=== PATIENT | female | born 1945 | race Caucasian/White ===

== ENCOUNTER 2022-01-27 10:40 | Inpatient (IN) ==
[2022-01-27] MEDS ORDERED: Acetaminophen IV 1,000 MG/100 ML BAG IVPB ONE (11:00)
[2022-01-27] MEDS ORDERED: Acetaminophen IV 500 MG/50 ML BAG IVPB ONE (11:22)
[2022-01-27] MEDS ORDERED: cloNIDine HCL 0.1 MG TABLET PO ONE (11:22)
[2022-01-27] MEDS ORDERED: *HR* FentaNYL (PF) 100 MCG/2 ML VIAL IVP PRN (11:23)
[2022-01-27] MEDS ORDERED: Albuterol 2.5 MG/3 ML NEBULIZER IH PRN (11:23)
[2022-01-27] MEDS ORDERED: Ondansetron 4 MG/2 ML VIAL IVP PRN ×2 (11:23→18:42)
[2022-01-27] MEDS ORDERED: CeFAZolin Syr 2,000MG/20 ML 2,000 MG/20 ML SYRINGE IVPB ONE (11:30)
[2022-01-27] MEDS ORDERED: Ringers Solution, Lactated 1,000 ML IVC SCH (11:30)
[2022-01-27] MEDS ORDERED: *HR* Propofol 200 MG/20 ML VIAL IVP ONE (11:49)
[2022-01-27] MEDS ORDERED: *HR* Midazolam HCl 2 MG/2 ML VIAL ONE (11:49)
[2022-01-27] MEDS ORDERED: *HR* FentaNYL (PF) 100 MCG/2 ML VIAL ONE (11:49)
[2022-01-27] MEDS ORDERED: Heparin 1,000 UNITS/500 mL 1,000 ML ONE (11:52)
[2022-01-27] MEDS ORDERED: Bupivacaine-MPF 0.25% 10 ML VIAL ONE (11:52)
[2022-01-27] MEDS ORDERED: Lidocaine HCL 4 ML Topical Solution (Laryng-O-Jet Kit Sterile Pak) TP ONE (11:53)
[2022-01-27] MEDS ORDERED: *HR* Rocuronium Bromide 50 MG/5 ML VIAL ONE ×2 (11:53→14:41)
[2022-01-27] MEDS ORDERED: Lidocaine -MPF 2% 5 ML VIAL ONE (11:53)
[2022-01-27] MEDS ORDERED: Vancomycin 1,000 MG, Sodium Chloride IRRigation 1,000 ML IR ONE (12:10)
[2022-01-27] MEDS ORDERED: *HR* HYDROMORPHONE 2 MG/ML VIAL ONE (13:45)
[2022-01-27] MEDS ORDERED: Sugammadex Sodium 200 MG/2 ML VIAL IV ONE (15:31)
[2022-01-27] MEDS ORDERED: Vancomycin 1,000 MG VIAL ONE (16:11)
[2022-01-27] MEDS ORDERED: Ondansetron 4 MG/2 ML VIAL ONE (17:06)
[2022-01-27] MEDS ORDERED: Naloxone 0.4 MG/ML INJ IVP PRN (18:42)
[2022-01-27] MEDS: *HR* Labetalol 20 MG/4 ML SYRINGE IVP PRN ×3 (18:54→23:59)
[2022-01-27] MEDS: ceFAZolin 1,000 MG in 0.9 % Sodium Chloride 10 ML IVP SCH (20:30)
[2022-01-28] MEDS ORDERED: CeFAZolin 2 GM/120 ML BAG IVPB SCH
[2022-01-28] MEDS: *HR* Labetalol 20 MG/4 ML SYRINGE IVP PRN ×2 (03:20→17:08)
[2022-01-28] MEDS: ceFAZolin 1,000 MG in 0.9 % Sodium Chloride 10 ML IVP SCH ×2 (04:27→16:57)
[2022-01-28 04:51] LABS: Basophils % 0.5 %; Eosinophils # 0.1 K/mcL (0.0-0.6); Eosinophils % 1.1 %; Hematocrit 30.4 % (35.3-44.9); Hemoglobin 9.5 g/dL (11.5-15.4); Immature Granulocytes % 0.3 % (0-4); Lymphocytes # 0.9 K/mcL (0.6-4.6); Lymphocytes % 11.7 %; Mean Corpuscular HGB Conc 31.3 g/dL (31.6-35.5); Mean Corpuscular Hemoglobin 27.6 pg (28.0-33.3); Mean Corpuscular Volume 88.4 fL (83.0-100.0); Mean Platelet Volume 11.2 fL (9.4-12.4); Monocytes # 0.6 K/mcL (0.0-1.3); Monocytes % 8.1 %; Neutrophils # 5.9 K/mcL (1.6-8.9); Platelet Count 210 K/mcL (140-400); Red Blood Count 3.44 M/mcL (3.82-4.97); Red Cell Distribution Width 14.3 % (11.5-14.5); Segmented Neutrophils % 78.3 %; White Blood Count 7.5 K/mcL (4.3-11.1)
[2022-01-28 05:11] LABS: Calcium 8.5 mg/dL (8.6-10.3); Potassium 3.9 mEq/L (3.5-5.1)
[2022-01-28] MEDS ORDERED: Aspirin Enteric Coated 81 MG Tablet PO SCH (09:00)
[2022-01-28] MEDS ORDERED: *HR* Heparin 5,000 UNIT/ML VIAL IVP ONE (16:41)
[2022-01-28] MEDS ORDERED: Morphine Sulfate 2 MG/ML SYRINGE IVP PRN ×2 (17:00→21:29)
[2022-01-28] MEDS ORDERED: *HR* Propofol 200 MG/20 ML VIAL IVP ONE (17:03)
[2022-01-28] MEDS ORDERED: Lidocaine -MPF 2% 5 ML VIAL ONE (17:04)
[2022-01-28] MEDS ORDERED: Heparin 1,000 UNITS/500 mL 500 ML ONE (17:11)
[2022-01-28] MEDS ORDERED: *HR* FentaNYL (PF) 100 MCG/2 ML VIAL ONE ×2 (17:49→18:54)
[2022-01-28] MEDS ORDERED: *HR* Succinylcholine 200 MG/10 ML VIAL IVP ONE (18:20)
[2022-01-28] MEDS ORDERED: *HR* Rocuronium Bromide 50 MG/5 ML VIAL ONE (18:20)
[2022-01-28] MEDS ORDERED: EPHEDrine sulfate 50 MG/10 ML VIAL IVP ONE (18:32)
[2022-01-28] MEDS ORDERED: Naloxone 0.4 MG/ML INJ IVP PRN ×3 (19:20→21:29)
[2022-01-28] MEDS ORDERED: Ipratropium/Albuterol Neb 3 ML IH ONE ×2 (19:20→21:29)
[2022-01-28] MEDS ORDERED: Nitroglycerin 0.4 MG TAB.SUBL SL PRN ×2 (19:20→21:29)
[2022-01-28] MEDS ORDERED: Ondansetron 4 MG/2 ML VIAL IVP PRN ×3 (19:20→21:29)
[2022-01-28] MEDS ORDERED: *HR* HYDROmorphone PF 0.5 MG/0.5 ML SYRINGE IVP PRN ×2 (19:20→21:29)
[2022-01-28] MEDS ORDERED: *HR* Heparin 5,000 UNIT/ML VIAL ONE (19:23)
[2022-01-28] MEDS ORDERED: *HR* Heparin 5,000 UNIT/ML VIAL IVP PRN ×4 (19:25→21:29)
[2022-01-28] MEDS ORDERED: Heparin 25,000UNIT/250ML 1/2NS 25,000 UNIT/250 ML IV.SOLN IVC SCH ×2 (19:30→21:29)
[2022-01-28] MEDS ORDERED: Sugammadex Sodium 200 MG/2 ML VIAL IV ONE (20:11)
[2022-01-28] MEDS ORDERED: *HR* HYDROcodone/Acet 5/325 mg TABLET PO PRN (21:29)
[2022-01-28] MEDS ORDERED: *HR* Labetalol 20 MG/4 ML SYRINGE IVP PRN (21:29)
[2022-01-28 22:02] LABS: Hematocrit 35.1 % (35.3-44.9); Hemoglobin 10.8 g/dL (11.5-15.4); Mean Corpuscular HGB Conc 30.8 g/dL (31.6-35.5); Mean Corpuscular Hemoglobin 27.8 pg (28.0-33.3); Mean Corpuscular Volume 90.2 fL (83.0-100.0); Mean Platelet Volume 11.3 fL (9.4-12.4); Platelet Count 223 K/mcL (140-400); Red Blood Count 3.89 M/mcL (3.82-4.97); Red Cell Distribution Width 14.6 % (11.5-14.5)
[2022-01-28 22:03] LABS: White Blood Count 12.4 K/mcL (4.3-11.1)
[2022-01-28 22:10] LABS: INR 1.1; Prothrombin Time 11.9 Seconds (9.4-12.1)
[2022-01-29 08:31] VITALS: TEMP 98.4
[2022-01-29] MEDS ORDERED: Aspirin Enteric Coated 81 MG Tablet PO SCH (09:00)
[2022-01-29] MEDS ORDERED: Apixaban 5 MG TABLET PO SCH (09:30)
[2022-01-29 10:26] LABS: Basophils % 0.4 %; Eosinophils # 0.1 K/mcL (0.0-0.6); Eosinophils % 0.6 %; Hematocrit 32.4 % (35.3-44.9); Immature Granulocytes % 0.4 % (0-4); Lymphocytes # 0.8 K/mcL (0.6-4.6); Lymphocytes % 8.4 %; Mean Corpuscular HGB Conc 30.9 g/dL (31.6-35.5); Mean Corpuscular Hemoglobin 27.6 pg (28.0-33.3); Mean Corpuscular Volume 89.5 fL (83.0-100.0); Mean Platelet Volume 11.6 fL (9.4-12.4); Monocytes # 0.9 K/mcL (0.0-1.3); Neutrophils # 7.6 K/mcL (1.6-8.9); Platelet Count 222 K/mcL (140-400); Red Blood Count 3.62 M/mcL (3.82-4.97); Red Cell Distribution Width 14.6 % (11.5-14.5); Segmented Neutrophils % 81.2 %; White Blood Count 9.4 K/mcL (4.3-11.1)
[2022-01-29 10:40] LABS: Calcium 8.5 mg/dL (8.6-10.3); Potassium 4.4 mEq/L (3.5-5.1)
[2022-01-29 12:02] VITALS: O2SAT 96
[2022-01-29 15:04] VITALS: BP 136/76
[2022-01-29 15:12] VITALS: PULSE 96
== END 2022-01-29 16:59 | disposition home or self-care (01) | DRG 253 ==
LOC: SAMDAY 10:40 → 2NNU 18:44
PROVIDERS: ADMIT Surgery Vascular Surgery; ATTEND Surgery Vascular Surgery

== ENCOUNTER 2022-02-10 13:59 | Observation (INO) ==
[2022-02-10 17:40] LABS: Eosinophils % 3.9 %; Immature Granulocytes % 1.1 % (0-4); Mean Platelet Volume 10.6 fL (9.4-12.4); Nucleated Red Blood Cells 0.2 /100 WBC (0)
[2022-02-10 17:41] LABS: Basophils # 0.1 K/mcL (0.0-0.2); Eosinophils # 0.3 K/mcL (0.0-0.6); Hematocrit 19.6 % (35.3-44.9); Lymphocytes # 1.7 K/mcL (0.6-4.6); Mean Corpuscular HGB Conc 29.6 g/dL (31.6-35.5); Mean Corpuscular Hemoglobin 26.9 pg (28.0-33.3); Mean Corpuscular Volume 90.7 fL (83.0-100.0); Monocytes # 0.9 K/mcL (0.0-1.3); Monocytes % 10.2 %; Neutrophils # 5.2 K/mcL (1.6-8.9); Platelet Count 455 K/mcL (140-400); Red Blood Count 2.16 M/mcL (3.82-4.97); Red Cell Distribution Width 14.6 % (11.5-14.5); Segmented Neutrophils % 62.8 %; White Blood Count 8.3 K/mcL (4.3-11.1)
[2022-02-10 17:47] LABS: Calcium 9.1 mg/dL (8.6-10.3); Potassium 4.1 mEq/L (3.5-5.1)
[2022-02-10 17:52] LABS: Hemoglobin 5.8 g/dL (11.5-15.4)
[2022-02-10 18:05] LABS: Hypochromasia Present (Not Present); Microcytosis Present (Not Present); Polychromasia 1+ (Not Present)
[2022-02-10 18:06] LABS: INR 1.3; Prothrombin Time 14.9 Seconds (9.4-12.1)
[2022-02-10] MEDS ORDERED: 0.9 % Sodium Chloride 500 ML ONE (19:40)
[2022-02-10] MEDS ORDERED: Iopamidol - 370 500 ML MLS IVP ONE (22:01)
[2022-02-10] MEDS ORDERED: Ondansetron 4 MG/2 ML VIAL IVP PRN (23:19)
[2022-02-10] MEDS ORDERED: Naloxone 0.4 MG/ML INJ IVP PRN (23:19)
[2022-02-11 03:03] LABS: Basophils # 0.1 K/mcL (0.0-0.2); Basophils % 0.8 %; Eosinophils # 0.4 K/mcL (0.0-0.6); Eosinophils % 4.9 %; Hematocrit 24.8 % (35.3-44.9); Immature Granulocytes % 0.8 % (0-4); Lymphocytes # 1.5 K/mcL (0.6-4.6); Lymphocytes % 19.9 %; Mean Corpuscular HGB Conc 31.9 g/dL (31.6-35.5); Mean Corpuscular Hemoglobin 28.2 pg (28.0-33.3); Mean Corpuscular Volume 88.6 fL (83.0-100.0); Mean Platelet Volume 10.1 fL (9.4-12.4); Monocytes # 0.7 K/mcL (0.0-1.3); Monocytes % 9.1 %; Neutrophils # 4.8 K/mcL (1.6-8.9); Nucleated Red Blood Cells 0.3 /100 WBC (0); Platelet Count 427 K/mcL (140-400); Red Cell Distribution Width 13.9 % (11.5-14.5); Segmented Neutrophils % 64.5 %; White Blood Count 7.4 K/mcL (4.3-11.1)
[2022-02-11 03:11] LABS: Hemoglobin 7.9 g/dL (11.5-15.4)
[2022-02-11 03:12] LABS: INR 1.2; Prothrombin Time 13.1 Seconds (9.4-12.1)
[2022-02-11 03:21] LABS: Albumin 3.3 g/dL (3.5-5.7); Albumin/Globulin Ratio 1.2 (1.1-2.2); Bilirubin,Direct 0.2 mg/dL (0.0-0.2); Bilirubin,Indirect 0.4 mg/dL (0.0-1.0); Bilirubin,Total 0.6 mg/dL (0.3-1.0); Calcium 8.9 mg/dL (8.6-10.3); Globulin 2.8 g/dL (2.4-3.5); Magnesium 1.9 mg/dL (1.6-2.6); Potassium 4.1 mEq/L (3.5-5.1); Total Protein 6.1 g/dL (6.4-8.9)
[2022-02-11] MEDS ORDERED: *HR* Labetalol 20 MG/4 ML SYRINGE IVP ONE (04:11)
[2022-02-11 04:29] LABS: Bacteria,Urine Few per hpf (None-Few); Bilirubin,Urine Negative (Negative); Blood,Urine Negative (Negative); Clarity,Urine Clear (Clear); Color,Urine Light-Yellow (Yellow); Glucose,Urine (UA) Normal (Normal); Ketones,Urine Negative (Negative); Leukocyte Esterase,Urine Small (Negative); Mucus,Urine Few per lpf (None-Few); Nitrite,Urine Negative (Negative); Protein,Urine Negative (Neg-Trace); Specific Gravity,Urine 1.011 (1.010-1.025); Squamous Epithelial Cell,Urine Few per hpf (None-Few); Urobilinogen,Urine Normal (Normal); WBC,Urine 0-3 per hpf (0-3)
[2022-02-11] MEDS: Pantoprazole 40 MG VIAL IVP SCH ×2 (05:20→18:30)
[2022-02-11] MEDS: Cholecalciferol (D-3) 1,000 UNIT (25MCG) TABLET PO SCH (09:12)
[2022-02-11] MEDS: lisinopriL 10 MG TABLET PO SCH (09:14)
[2022-02-11] MEDS: 0.9 % Sodium Chloride 1,000 ML IVC SCH (12:02)
[2022-02-11] MEDS ORDERED: Lidocaine -MPF 2% 2 ML VIAL ONE (13:01)
[2022-02-11] MEDS ORDERED: *HR* Propofol 200 MG/20 ML VIAL IVP ONE (13:01)
[2022-02-12 03:21] LABS: Calcium 6.8 mg/dL (8.6-10.3); Magnesium 1.4 mg/dL (1.6-2.6); Potassium 3.3 mEq/L (3.5-5.1)
[2022-02-12] MEDS: 0.9 % Sodium Chloride 1,000 ML IVC SCH (04:30)
[2022-02-12 04:49] LABS: Basophils # 0.1 K/mcL (0.0-0.2); Basophils % 0.7 %; Eosinophils # 0.3 K/mcL (0.0-0.6); Eosinophils % 4.3 %; Hematocrit 22.4 % (35.3-44.9); Hemoglobin 7.1 g/dL (11.5-15.4); Immature Granulocytes % 0.9 % (0-4); Lymphocytes # 1.1 K/mcL (0.6-4.6); Lymphocytes % 16.3 %; Mean Corpuscular HGB Conc 31.7 g/dL (31.6-35.5); Mean Corpuscular Hemoglobin 28.2 pg (28.0-33.3); Mean Corpuscular Volume 88.9 fL (83.0-100.0); Mean Platelet Volume 10.6 fL (9.4-12.4); Monocytes # 0.6 K/mcL (0.0-1.3); Neutrophils # 4.6 K/mcL (1.6-8.9); Platelet Count 363 K/mcL (140-400); Red Blood Count 2.52 M/mcL (3.82-4.97); Red Cell Distribution Width 14.3 % (11.5-14.5); Segmented Neutrophils % 68.8 %; White Blood Count 6.7 K/mcL (4.3-11.1)
[2022-02-12] MEDS: Pantoprazole 40 MG VIAL IVP SCH (05:21)
[2022-02-12 07:47] VITALS: BP 173/77; PULSE 74; TEMP 97.6; O2SAT 97
[2022-02-12] MEDS: Calcium Gluconate 1gm/50mL 1 GM/50 ML BAG IVPB SCH ×2 (08:24→09:28)
[2022-02-12] MEDS: lisinopriL 10 MG TABLET PO SCH (08:25)
[2022-02-12] MEDS: Cholecalciferol (D-3) 1,000 UNIT (25MCG) TABLET PO SCH (08:25)
== END 2022-02-12 13:46 | disposition home or self-care (01) ==
LOC: EMEROOARM 13:59 → 2ANU 13:59
PROVIDERS: ADMIT Internal Medicine; ATTEND Internal Medicine